=== PATIENT | male | born 1975 | race Caucasian/White ===

== ENCOUNTER → 2023-01-04 11:35 | Outpatient (BNVA) | payer SELFPAY | PROVIDERS: Family Provider Family Medicine; Visit Provider Nurse Practitioner Family | DX: Z13.29 Encounter for screening for other suspected endocrine disorder (principal); N40.0 Benign prostatic hyperplasia without lower urinary tract symptoms | CPT/HCPCS: 80053; 84443; 85025; G0103 ==